=== PATIENT | female | born 2000 | race Caucasian/White ===

== ENCOUNTER → 2021-09-02 | Outpatient (CLI) | payer BC | LOC: LAB FS 14:37 | PROVIDERS: ATTEND Family Medicine | DX: N96 Recurrent pregnancy loss (principal) | CPT/HCPCS: 36415; 84702 ==

== ENCOUNTER → 2021-09-06 | Outpatient (CLI) | payer BC | LOC: LAB FS 08:58 | PROVIDERS: ATTEND Family Medicine | DX: N96 Recurrent pregnancy loss (principal) | CPT/HCPCS: 36415; 84702 ==

== ENCOUNTER → 2021-09-30 | Outpatient (CLI) | payer BC ==
[2021-09-30 10:34] LABS: HEMATOCRIT 38 % (35-52); HEMOGLOBIN 12.9 g/dL (11.5-16.0); MEAN CORPUSCULAR HEMOGLOBIN 29 pg (25-34); MEAN CORPUSCULAR HGB CONC 34 g/dL (32-36); MEAN CORPUSCULAR VOLUME 85 fL (80-99); MEAN PLATELET VOLUME 11.5 fL (9.0-12.2); PLATELET COUNT 291 10^3/uL (130-400); WHITE BLOOD COUNT 10.6 10^3/uL (4.3-11.0)
== END ==
LOC: LAB FS 09:58
PROVIDERS: ATTEND Family Medicine
DX: Z34.81 Encounter for supervision of other normal pregnancy, first trimester (principal); Z3A.08 8 weeks gestation of pregnancy
CPT/HCPCS: 36415; 85027; 86762; 86780; 86850; 86900; 86901; 87088; 87340; 87389

== ENCOUNTER → 2021-11-01 | Outpatient (CLI) | payer BC | LOC: LABNPT 16:06 | PROVIDERS: ATTEND Family Medicine | DX: Z33.1 Pregnant state, incidental (principal) | CPT/HCPCS: 87491; 87591 ==

== ENCOUNTER → 2021-11-22 | Outpatient (CLI) | payer MEDICAID | LOC: LABNPT 15:10 | PROVIDERS: ATTEND Registered Nurse Emergency | DX: N39.0 Urinary tract infection, site not specified (principal) | CPT/HCPCS: 87088 ==

== ENCOUNTER → 2021-12-13 | Outpatient (CLI) | payer MEDICAID | LOC: LAB FS 14:48 | PROVIDERS: ATTEND Registered Nurse Emergency | DX: N89.8 Other specified noninflammatory disorders of vagina (principal); R52 Pain, unspecified; Z33.1 Pregnant state, incidental | CPT/HCPCS: 87210 ==

== ENCOUNTER → 2021-12-14 | Outpatient (CLI) | payer MEDICAID | LOC: LABNPT 16:30 | PROVIDERS: ATTEND Registered Nurse Emergency | DX: N89.8 Other specified noninflammatory disorders of vagina (principal); R52 Pain, unspecified; Z33.1 Pregnant state, incidental | CPT/HCPCS: 87491; 87591 ==

== ENCOUNTER 2022-02-11 10:14 | Emergency (ER) | payer MEDICAID ==
[~2022-02-11] VITALS: Ht 162.6 cm; Wt 98.3 kg
[2022-02-11 10:33] LABS: BILIRUBIN,URINE NEGATIVE (NEGATIVE); COLOR,URINE YELLOW; GLUCOSE, URINE (UA) 1+ (NEGATIVE); KETONES,URINE TRACE (NEGATIVE); LEUKOCYTE ESTERASE ,URINE TRACE (NEGATIVE); NITRITE,URINE NEGATIVE (NEGATIVE); PROTEIN,URINE NEGATIVE (NEGATIVE)
[2022-02-11 10:37] LABS: BACTERIA,URINE LARGE /HPF; CLARITY,URINE CLOUDY; SQUAMOUS EPITHELIAL CELL,UR >50 /HPF; WBC,URINE 25-50 /HPF
--- NOTE | 2022-02-11 10:37 | ED GI ---
General Chief Complaint: OB > 20 WEEKS Stated Complaint: VAGINAL BLEEDING (27W PREG) Source of Information: Patient Exam Limitations: No Limitations History of Present Illness Date Seen by Provider: Feb 11, 2022 Time Seen by Provider: 10:15 Initial Comments 21-year-old female at 27 WGA coming in due to vaginal bleeding. Had some spotting on Sunday which stopped, little bit more bleeding last night, which has also stopped, and wanted to be checked out. She states she has lower abdominal pain, but this has been constant during her entire , and continues to feel it with no changes. Did discuss that this is likely round ligament discomfort. She denies having any contractions that she knows of. She has had a healthy thus far with a normal ultrasound. She has not taken anything for discomfort including Tylenol because she is concerned she read 1 time acute cause autism in the child. Denies any dysuria, urinary frequency, nausea, vomiting, diarrhea, fever, chills, focal weakness or numbness, rash, vaginal discharge, chest pain, shortness of breath, or any other concerns. She does states she feels baby move. Allergies and Home Medications Allergies Coded Allergies: No Known Drug Allergies (Unverified , 02/11/22) Patient Home Medication List Home Medication List Reviewed: Yes Review of Systems Review of Systems Constitutional: No fever EENTM: No Blurred Vision Respiratory: Denies Cough Cardiovascular: Denies Chest Pain Gastrointestinal: Abdominal Pain Genitourinary: Denies Burning Musculoskeletal: no symptoms reported Skin: no symptoms reported Endocrine: No Symptoms Reported Hematologic/Lymphatic: No Symptoms Reported All Other Systems Reviewed Negative Unless Noted: Yes Past [id number] Hx Patient Social History Tobacco Use?: No Smoking Status: Never a Smoker Smokeless Tobacco Frequency: Never a User Use of E-Cig and/or Vaping dev: No Use of E-Cig and/or Vaping [place]: Never a User Substance use?: No Alcohol Use?: No Pt feels they are or have been: No Past Medical History Surgeries: No Physical Exam Vital Signs Vital Signs - First Documented 02/11/22 10:17 Temp 37.6 Pulse 101 Resp 18 B/P (MAP) 131/85 (100) O2 Delivery Room Air Capillary Refill : Height/Weight/BMI Height: '" Weight: lbs. oz. kg; BMI Method: General Appearance: WD/WN, no apparent distress HEENT: PERRL/EOMI, normal ENT inspection, pharynx normal Neck: non-tender, full range of motion, supple, normal inspection Respiratory: chest non-tender, lungs clear, normal breath sounds, no respiratory distress, no accessory muscle use Cardiovascular: regular rate, rhythm, no edema, no murmur Gastrointestinal: normal bowel sounds, non tender, soft; No distended, No guard ing, No rebound Extremities: normal range of motion, non-tender, normal inspection, no pedal edema, no calf tenderness, normal capillary refill Back: normal inspection, no CVA tenderness, no vertebral tenderness Pelvic: normal external exam, other (Cervical os is closed, very small amount of old vaginal bleeding, no bleeding at this time) Neurologic/Psychiatric: no motor/sensory deficits, alert, normal mood/affect Skin: normal color, warm/dry Lymphatic: no adenopathy Progress/Results/Core Measures Results/Orders Lab Results Laboratory Tests Test 02/11/22 10:28 Range/Units Urine Color YELLOW Urine Clarity CLOUDY Urine pH 7.0 5-9 Urine Specific [place] 1.025 H 1.016-1.022 Urine Protein NEGATIVE NEGATIVE Urine Glucose (UA) 1+ H NEGATIVE Urine Ketones TRACE H NEGATIVE Urine Nitrite NEGATIVE NEGATIVE Urine Bilirubin NEGATIVE NEGATIVE Urine Urobilinogen 1.0 < = 1.0 MG/DL Urine Leukocyte Esterase TRACE H NEGATIVE Urine RBC (Auto) TRACE-I H NEGATIVE Urine RBC 10-25 H /HPF Urine WBC 25-50 H /HPF Urine Squamous Epithelial Cells >50 H /HPF Urine Crystals NONE /LPF Urine Bacteria LARGE H /HPF Urine Casts NONE /LPF Urine Mucus LARGE H /LPF Urine Yeast FEW H /HPF Urine Culture Indicated NO My Orders Orders - SUMA ASTORGA MD Ua Culture If Indicated (02/11/22 10:17) Vital Signs/I&O 02/11/22 10:17 Temp 37.6 Pulse 101 Resp 18 B/P (MAP) 131/85 (100) O2 Delivery Room Air Progress Progress Note : Progress Note 21-year-old female with above history coming in due to vaginal bleeding during . ABCs were intact and vitals were stable on presentation. Physical exam with a soft abdomen that is nontender, but gravid. [id number] ultrasound obtained showing baby moving, is not vertex at this time, heart rate in the 140s. Pelvic exam performed with director of investigations in room with a cervical os that is closed with no bleeding at this time. Urinalysis with concerns for infection versus contamination. We will opt to treat given her symptoms and her . I discussed with the patient at this time is unlikely that she is actively having a miscarriage, and does not appear like she is in labor since she knows what contractions feel like, and does not feel them at this time. I discussed since the bleeding is stopped, it is okay to try the antibiotics and follow-up as an outpatient. I discussed if she has more bleeding or contractions and she should present to a center with OB if able. I believe she is stable for discharge with outpatient follow-up. She was sent home with strict return precautions Departure Impression Primary Impression: Urinary tract infection Qualified Codes: N30.01 - Acute cystitis with hematuria Additional Impression: Vaginal bleeding during Disposition: HOME, SELF-CARE Condition: Stable Departure-Patient Inst. Decision time for Depature: 10:55 Referrals: RADHA COHEN MD (PCP) Primary Care Physician Patient Instructions: Urinary Tract Infection, Adult (DC), Vaginal Bleeding in Late ED Add. Discharge Instructions: If you have an increase in your bleeding again, I would recommend following up at the hospital that has OB such as [place] or [place]. Please finish the antibiotics that have been prescribed to you regardless which is safe in . Regardless, even if everything is going well on Sunday, I want you to call Dr. Cohen's office to let them know that you did have some vaginal bleeding and if they would like anything else to be done. Scripts Nitrofurantoin Monohyd/M-Cryst (Macrobid 100 mg Capsule) 100 Mg Capsule 1 TAB PO BID for 5 Days, #10 CAP Prov: SUMA ASTORGA MD 02/11/22 Work/School Note: Work Release Form Date Seen in the Emergency Department: Feb 11, 2022 Return to Work: Feb 12, 2022 Restrictions: No Restrictions SUMA ASTORGA MD Feb 11, 2022 10:37
[2022-02-11 10:38] LABS: YEAST,URINE FEW /HPF
[2022-02-11] MEDS ORDERED: NITR-65 PO (10:57)
[2022-02-11 11:00] VITALS: BP 129/76
== END 2022-02-11 11:00 | disposition home or self-care (01) ==
LOC: EDUNIT# 10:14 → ER FS 10:15
DX: O23.42 Unspecified infection of urinary tract in pregnancy, second trimester (principal); O46.92 Antepartum hemorrhage, unspecified, second trimester; N39.0 Urinary tract infection, site not specified; Z28.310 Unvaccinated for COVID-19; Z3A.27 27 weeks gestation of pregnancy
CPT/HCPCS: 81000

== ENCOUNTER → 2022-02-14 | Outpatient (CLI) | payer MEDICAID ==
[~2022-02-14] MED LIST: NITR-65 PO
== END ==
LOC: LABNPT 14:39
PROVIDERS: ATTEND Family Medicine
DX: Z34.92 Encounter for supervision of normal pregnancy, unspecified, second trimester (principal); N93.9 Abnormal uterine and vaginal bleeding, unspecified
CPT/HCPCS: 87491; 87591

== ENCOUNTER → 2022-02-14 | Outpatient (CLI) | payer MEDICAID | LOC: LABNPT 11:28 | PROVIDERS: ATTEND Family Medicine | DX: O26.852 Spotting complicating pregnancy, second trimester (principal); Z3A.00 Weeks of gestation of pregnancy not specified | CPT/HCPCS: 87210 ==

== ENCOUNTER → 2022-02-15 | Outpatient (CLI) | payer MEDICAID ==
[2022-02-15 10:55] LABS: HEMATOCRIT 33 % (35-52); HEMOGLOBIN 10.8 g/dL (11.5-16.0); MEAN CORPUSCULAR HEMOGLOBIN 28 pg (25-34); MEAN CORPUSCULAR HGB CONC 33 g/dL (32-36); MEAN CORPUSCULAR VOLUME 84 fL (80-99); MEAN PLATELET VOLUME 11.3 fL (9.0-12.2); PLATELET COUNT 297 10^3/uL (130-400); WHITE BLOOD COUNT 15.1 10^3/uL (4.3-11.0)
== END ==
LOC: LAB FS 09:23
PROVIDERS: ATTEND Family Medicine
DX: Z34.93 Encounter for supervision of normal pregnancy, unspecified, third trimester (principal); Z3A.28 28 weeks gestation of pregnancy
CPT/HCPCS: 36415; 82950; 85027; 86780